=== PATIENT | female | born 1995 | race Two or more races ===

== ENCOUNTER 2016-09-22 07:42 | Outpatient (CLI) | payer OTHER ==
[~2016-09-22] VITALS: Ht 160 cm; Wt 90.0 kg
[2016-09-22 08:21] VITALS: BP 118/77
[2016-09-22 10:31] LABS: ADD MIUA? YES; BILIRUBIN NEGATIVE; BLOOD NEGATIVE; COLOR YELLOW ((YELLOW)); GLUCOSE (STRIP) NEGATIVE; KETONES NEGATIVE; LEUKOCYTES SMALL; NITRITE NEGATIVE; PROTEIN (STRIP) NEGATIVE; SPECIFIC GRAVITY 1.013 (1.000-1.030); UROBILINOGEN 0.2 MG/DL (0.2-1.0)
[2016-09-22 10:33] LABS: BACTERIA RARE /HPF; EPITHELIAL CELLS 1+ /HPF; MUCUS TRACE /LPF; RED BLOOD CELLS 0-5 /HPF (0-5); WHITE BLOOD CELLS 0-5 /HPF (0-5)
[2016-09-22 10:51] LABS: AMPHETAMINE NEGATIVE (500 ng/mL); BARBITURATES NEGATIVE (200 ng/mL); BENZODIAZEPINES NEGATIVE (150 ng/mL); COCAINE NEGATIVE (150 ng/mL); INTERNAL CONTROLS VALID? YES; METHADONE NEGATIVE (200 ng/mL); METHAMPHETAMINE NEGATIVE (500 ng/mL); OPIATES (MORPHINE) NEGATIVE (100 ng/mL); OXYCODONE NEGATIVE (100 ng/mL); PHENCYCLIDINE NEGATIVE (25 ng/mL); PROPOXYPHENE NEGATIVE (300 ng/mL); THC CANNABINOIDS NEGATIVE (50 ng/mL); TRICYCLIC ANTIDEPRESSANTS NEGATIVE (300 ng/mL)
[2016-09-22 17:54] LABS: CANDIDA DNA PROBE NEGATIVE; GARDNERELLA DNA PROBE POSITIVE; INTERNAL CONTROL VALID? YES
[2016-09-25 12:42] LABS: CHLAMYDIA TRACHOMATIS NEGATIVE; NEISSERIA GONORRHOEAE NEGATIVE
== END 2016-09-22 11:45 | disposition home or self-care (01) ==
LOC: LDRP-OP 07:42 → 2WEST 07:43 → LDRP-OP 01-10 11:03
PROVIDERS: Advanced Practice Midwife; Obstetrics & Gynecology
DX: O26.893 Other specified pregnancy related conditions, third trimester (principal); Z3A.28 28 weeks gestation of pregnancy; M54.5 Low back pain; M41.9 Scoliosis, unspecified
CPT/HCPCS: 59025; 81003; 87086; 87480; 87491; 87510; 87591; 87660; G0378

== ENCOUNTER 2016-10-05 11:58 | Outpatient (CLI) | payer OTHER ==
[~2016-10-05] VITALS: Ht 160 cm; Wt 90.7 kg
[2016-10-05 12:20] VITALS: BP 138/83
[2016-10-05] MEDS ORDERED: ASPIR 8181 M1 PO (12:45)
[2016-10-05] MEDS ORDERED: PRENATAL TABLE1 EAC3 PO (12:45)
[2016-10-05 12:50] VITALS: BP 125/76
[2016-10-05 13:37] LABS: EOSINOPHIL (%) 0.8 % (0-5); EOSINOPHIL COUNT 0.1 K/uL (0-0.3); HEMATOCRIT 34.5 % (36.0-46.0); IMMATURE GRANULOCYTE (%) 0.5 % (0.0-0.7); INSTRUMENT ABS NEUTROPHIL CT 5.6 K/uL; LYMPHOCYTE COUNT 1.6 K/uL (1.0-2.8); MCH 32.3 PG (29.0-34.0); MCHC 35.7 G/DL (30.0-36.0); MCV 90.6 FL (83-99); MEAN PLAT.VOLUME 11.7 uM^3 (9.5-12.4); MONOCYTE (%) 5.5 % (3-12); MONOCYTE COUNT 0.4 K/uL (0-0.8); NEUTROPHIL (%) 71.9 % (45-76); NEUTROPHIL COUNT 5.6 K/uL (1.8-6.4); PLATELET COUNT 170 K/uL (156-360); RBC DIS.WIDTH-CV 12.3 % (11.8-14.6); RBC DIS.WIDTH-SD 40.3 % (39-53); RED BLOOD COUNT 3.81 M/uL (3.80-5.20); WHITE BLOOD COUNT 7.8 K/uL (4.1-10.2)
[2016-10-05 13:59] LABS: AMPHETAMINE NEGATIVE (500 ng/mL); BARBITURATES NEGATIVE (200 ng/mL); BENZODIAZEPINES NEGATIVE (150 ng/mL); COCAINE NEGATIVE (150 ng/mL); INTERNAL CONTROLS VALID? YES; METHADONE NEGATIVE (200 ng/mL); METHAMPHETAMINE NEGATIVE (500 ng/mL); OPIATES (MORPHINE) NEGATIVE (100 ng/mL); OXYCODONE NEGATIVE (100 ng/mL); PHENCYCLIDINE NEGATIVE (25 ng/mL); PROPOXYPHENE NEGATIVE (300 ng/mL); THC CANNABINOIDS NEGATIVE (50 ng/mL); TRICYCLIC ANTIDEPRESSANTS NEGATIVE (300 ng/mL)
[2016-10-05 14:00] LABS: ALKALINE PHOSPHATASE 107 IU/L (3-129); ANION GAP 10 MEQ/L (2-14); CHLORIDE 106 MEQ/L (99-109); GFR ESTIMATE (CALCULATED) > 59 mL/min/; GLUCOSE 96 mg/dL (70-99); LACTATE DEHYDROGENASE 151 IU/L (20-246); SAMPLE HEMOLYSIS CHECK 0; SAMPLE ICTERIC CHECK 0; SAMPLE LIPEMIA CHECK 0; SODIUM 139 MEQ/L (136-147); TOTAL BILIRUBIN 0.3 MG/DL (0.0-1.0); UREA NITROGEN (BUN) 11 mg/dL (9-23); URIC ACID 5.6 mg/dL (3.1-9.2)
[2016-10-05 14:04] LABS: UR CREATININE CONCENTRATION 135.2 MG/DL
== END 2016-10-05 15:30 | disposition home or self-care (01) ==
LOC: LDRP-OP 11:58 → 2WEST 11:59 → LDRP-OP 01-11 12:05
PROVIDERS: Advanced Practice Midwife
DX: O26.893 Other specified pregnancy related conditions, third trimester (principal); R03.0 Elevated blood-pressure reading, without diagnosis of hypertension; O12.03 Gestational edema, third trimester; Z3A.30 30 weeks gestation of pregnancy; O36.5930 Maternal care for other known or suspected poor fetal growth, third trimester, not applicable or unspecified
CPT/HCPCS: 59025; 80053; 82570; 83615; 84156; 84550; 85025; G0378

== ENCOUNTER 2016-10-10 23:45 | Outpatient (CLI) | payer OTHER ==
[~2016-10-10] VITALS: Ht 160 cm; Wt 92.1 kg
[~2016-10-10 23:45] MED LIST: ASPIR 8181 M1 PO; PRENATAL TABLE1 EAC3 PO
[2016-10-11] VITALS (18 sets, daily range): BP systolic 125–179; BP diastolic 60–98
[2016-10-11 00:54] LABS: EOSINOPHIL (%) 0.7 % (0-5); EOSINOPHIL COUNT 0.1 K/uL (0-0.3); HEMATOCRIT 33.2 % (36.0-46.0); IMMATURE GRANULOCYTE (%) 0.4 % (0.0-0.7); INSTRUMENT ABS NEUTROPHIL CT 6.8 K/uL; LYMPHOCYTE COUNT 2.5 K/uL (1.0-2.8); MCH 31.7 PG (29.0-34.0); MCHC 35.5 G/DL (30.0-36.0); MCV 89.2 FL (83-99); MEAN PLAT.VOLUME 11.6 uM^3 (9.5-12.4); MONOCYTE (%) 6.3 % (3-12); MONOCYTE COUNT 0.6 K/uL (0-0.8); NEUTROPHIL (%) 67.4 % (45-76); NEUTROPHIL COUNT 6.8 K/uL (1.8-6.4); PLATELET COUNT 173 K/uL (156-360); RBC DIS.WIDTH-CV 11.9 % (11.8-14.6); RBC DIS.WIDTH-SD 38.8 % (39-53); RED BLOOD COUNT 3.72 M/uL (3.80-5.20); WHITE BLOOD COUNT 10.1 K/uL (4.1-10.2)
[2016-10-11 01:02] LABS: CHLORIDE 106 mEq/L (99-109); POTASSIUM 3.8 mEq/L (3.7-5.4); SODIUM 137 mEq/L (136-147)
[2016-10-11 01:04] LABS: GLUCOSE 88 mg/dL (70-99)
[2016-10-11 01:05] LABS: ANION GAP 9 MEQ/L (2-14)
[2016-10-11 01:06] LABS: TOTAL BILIRUBIN 0.2 mg/dL (0.0-1.0)
[2016-10-11 01:07] LABS: ALKALINE PHOSPHATASE 124 IU/L (3-129)
[2016-10-11 01:08] LABS: GFR ESTIMATE (CALCULATED) > 59 mL/min/
[2016-10-11 01:09] LABS: UREA NITROGEN (BUN) 14 mg/dL (9-23)
[2016-10-11 01:11] LABS: URIC ACID 5.2 mg/dL (3.1-9.2)
[2016-10-11 03:29] LABS: LACTATE DEHYDROGENASE 146 IU/L (20-246)
== END 2016-10-11 18:45 | disposition short-term general hospital (02) ==
LOC: LDRP-OP 23:45 → 2WEST 23:46 → LDRP-OP 01-11 20:51
PROVIDERS: Advanced Practice Midwife
DX: O14.13 Severe pre-eclampsia, third trimester (principal); Z3A.31 31 weeks gestation of pregnancy
CPT/HCPCS: 59025; 80053; 81050; 83615; 84156; 84550; 85025; G0378; J0702; J3475

== ENCOUNTER 2016-11-08 22:03 | Observation (INO) | payer OTHER ==
[~2016-11-08] VITALS: Ht 160 cm; Wt 91.8 kg
[2016-11-08] MEDS ORDERED: CITALOPRAM HBR10 MG PO (23:20)
[2016-11-08 23:51] LABS: HEMATOCRIT 28.1 % (36.0-46.0); MCH 28.2 PG (29.0-34.0); MCHC 32.7 G/DL (30.0-36.0); MCV 86.2 FL (83-99); PLATELET COUNT 334 K/uL (156-360); RBC DIS.WIDTH-CV 13.1 % (11.8-14.6); RBC DIS.WIDTH-SD 41.1 % (39-53); RED BLOOD COUNT 3.26 M/uL (3.80-5.20); WHITE BLOOD COUNT 9.1 K/uL (4.1-10.2)
[2016-11-09] VITALS (16 sets, daily range): BP systolic 103–154; BP diastolic 55–83
[2016-11-09 01:58] LABS: CHLORIDE 105 mEq/L (99-109); POTASSIUM 3.5 mEq/L (3.7-5.4); SODIUM 141 mEq/L (136-147)
[2016-11-09 02:00] LABS: GLUCOSE 92 mg/dL (70-99)
[2016-11-09 02:01] LABS: ANION GAP 11 MEQ/L (2-14)
[2016-11-09 02:02] LABS: TOTAL BILIRUBIN 0.3 mg/dL (0.0-1.0)
[2016-11-09 02:03] LABS: INTER. NORMALIZED RATIO 1.1; PROTHROMBIN TIME 12.5 SEC (10.2-12.9)
[2016-11-09 02:03] LABS: ALKALINE PHOSPHATASE 95 IU/L (3-129)
[2016-11-09 02:04] LABS: GFR ESTIMATE (CALCULATED) > 59 mL/min/
[2016-11-09 02:05] LABS: UREA NITROGEN (BUN) 10 mg/dL (9-23)
[2016-11-09 02:05] LABS: PTT 33.1 SEC (25-37)
[2016-11-09 03:11] LABS: FIBRINOGEN 686 mg/dL (150-450)
[2016-11-10 03:20] VITALS: BP 136/69
[2016-11-10 07:13] VITALS: BP 110/56
[2016-11-10 09:39] LABS: HEMATOCRIT 24.1 % (36.0-46.0); MCV 87.6 FL (83-99); MEAN PLAT.VOLUME 9.5 uM^3 (9.5-12.4); PLATELET COUNT 286 K/uL (156-360); RBC DIS.WIDTH-CV 13.2 % (11.8-14.6); RBC DIS.WIDTH-SD 42.2 % (39-53); RED BLOOD COUNT 2.75 M/uL (3.80-5.20); WHITE BLOOD COUNT 7.8 K/uL (4.1-10.2)
[2016-11-10 10:47] VITALS: BP 119/56
[2016-11-10] MEDS ORDERED: FERROUS SULFAT325 MG PO (11:16)
[2016-11-10] MEDS ORDERED: DOCUSATE SODIU100 MG PO (11:16)
[2016-11-10 11:18] VITALS: BP 132/73
[2016-11-10] MEDS ORDERED: EXTRA-VIRT PLU1 EACH PO (11:19)
== END 2016-11-10 12:30 | disposition home or self-care (01) ==
LOC: EME 22:03 → EDOF 11-09 00:40 → 2WEST 11-09 00:40 → ENRESERV 11-09 01:16 → 2WEST 11-09 01:29
PROVIDERS: Obstetrics & Gynecology
DX: O14.95 Unspecified pre-eclampsia, complicating the puerperium (principal); O72.1 Other immediate postpartum hemorrhage; O90.81 Anemia of the puerperium; D62 Acute posthemorrhagic anemia; R51 Headache; F32.9 Major depressive disorder, single episode, unspecified; F41.9 Anxiety disorder, unspecified
CPT/HCPCS: 76856; 80053; 81003; 83030; 84702; 85025; 85027; 85384; 85610; 85730; 86850; 86900; 86901; 99281; 99284; G0378; J2790; J3475; J7120